=== PATIENT | male | born 1980 | race Caucasian/White ===

== ENCOUNTER 2016-07-20 21:10 | Emergency (ER) | payer MEDICAID ==
[~2016-07-20] VITALS: Ht 177.8 cm; Wt 90.7 kg
[~2016-07-20 21:10] MED LIST: FLOMAX0.4 MG ORAL; IBUPROFEN600 MG ORAL; NKM; NORCO 10-325 T1 EACH ORAL
[2016-07-20 21:40] VITALS: BP 117/85
[2016-07-20] MEDS ORDERED: Fluorescein Strips RIGHT EYE ONE (22:00)
[2016-07-20] MEDS ORDERED: Tetracaine 0.5% Opth Soln RIGHT EYE ONE (22:00)
[2016-07-20] MEDS ORDERED: VALACYCLOVIR1000 MG ORAL (22:15)
[2016-07-20] MEDS ORDERED: ACETAMINOPHEN-1 EAC1 ORAL (22:15)
[2016-07-20] MEDS ORDERED: IBUPROFEN800 MG ORAL (22:15)
--- NOTE | 2016-07-21 01:33 | Emergency Room Report ---
History of Present Illness General Chief Complaint: Neck Pain Source: Patient Present Illness HPI 35YOM with no known medical problems walk-in with burning pain, rash to right side of neck, ear, and eye "redness." for "a few days." Denies fever/chills, headache, nausea/vomiting, neck pain/stiffness. Denies eye blurry vision, decrease vision. States initially with severe pain to area, then rash breakout. Some of the rash had "bubbles" that he popped. Denies ear pain, rash on nose. Allergies: Coded Allergies: PENICILLINS (Verified Adverse Reaction, Intermediate, 11/16/15) Patient History Past Medical History: none Past Surgical History: none Pertinent Family History: none Social History: Denies: alcohol use, drug use, smoking Immunizations: UTD Reviewed Nursing Documentation: PMH: Agreed, PSxH: Agreed Nursing Documentation-PMH Past Medical History: No Stated History Review of Systems All Other Systems: negative except mentioned in HPI Physical Exam Vital Signs Date Time Temp Pulse Resp B/P Pulse Ox O2 Delivery O2 Flow Rate FiO2 07/20/16 21:37 97.9 81 20 117/85 97 Room Air Sp02 EP Interpretation: reviewed, normal General Appearance: normal inspection, well appearing, no apparent distress, alert, GCS 15, non-toxic Head: normocephalic, atraumatic Eyes: bilateral eye EOMI, bilateral eye PERRL, bilateral eye other - Right eye : no flour uptake or dendrites on blue lamp ENT: normal ENT inspection, hearing grossly normal, normal voice, other - No vesicles on TM; no vesicles on nose Neck: normal inspection, full range of motion, supple, no meningismus, no bony tend Respiratory: normal inspection, lungs clear, normal breath sounds, no respiratory distress, no retraction, no wheezing Cardiovascular #1: regular rate, rhythm, no edema Gastrointestinal: normal inspection, normal bowel sounds, non tender, soft, no guarding, no hernia Genitourinary: no CVA tenderness Musculoskeletal: normal inspection, back normal, normal range of motion, Lina' s Sign negative Neurologic: alert, oriented x3, responsive, director sterile processing III-XII nml as tested, motor strength/tone normal Psychiatric: normal inspection, judgement/insight normal, mood/affect normal Skin: normal color, other - Multiple areas of vesicles on erythematous base along dermatome of right side of neck, extending to include right ear. Medical Decision Making Diagnostic Impression: Primary Impression: Herpes zoster Qualified Codes: B02.9 - Zoster without complications ER Course Likely shingles given initial severe pain then rash, vesicles on erythematous base Does not appear to have opthalmicus however right eye has injected conjunctiva No judith celestin Rx Valtrex, Ibuprofen/T#3 Given Referral Optham for tomorrow to evaluate eye He understands importance of Optham followup Last Vital Signs Date Time Temp Pulse Resp B/P Pulse Ox O2 Delivery O2 Flow Rate FiO2 07/20/16 22:30 97.9 81 20 117/85 97 Room Air Status: improved Disposition: HOME, SELF-CARE Condition: Improved Scripts Acetaminophen With Codeine (T#3) (TYLENOL #3 TAB*) Y Tab 2 TAB ORAL Q6H Y for Severe pain for 7 Days, #30 TAB Prov: AMBAR MCDONNELL M.D. 07/20/16 Ibuprofen* (MOTRIN*) 800 Mg Tablet 800 MG ORAL THREE TIMES A DAY for For Pain, #30 TAB 0 Refills Prov: AMBAR MCDONNELL M.D. 07/20/16 Valacyclovir Hcl (VALACYCLOVIR) 1,000 Mg Tablet 1000 MG ORAL TID for 10 Days, #30 TAB Prov: AMBAR MCDONNELL M.D. 07/20/16 Referrals: [facility],REFERRING (PCP) Patient Instructions: Shingles, [id number] Additional Instructions: - Take all the Valacyclovir for 10 days until finished - Take ibuprofen every 8 hours for pain with food - For severe pain, take Tylenol with Codeine - Make appointment to see Opthamologist TOMORROW. - Farshad Mack, [place] - Tristen Koch, AMBAR MCDONNELL M.D. Jul 21, 2016 01:33
== END 2016-07-20 23:58 | disposition home or self-care (01) ==
LOC: EMR 22:27
DX: B02.9 Zoster without complications (principal)
CPT/HCPCS: 99284

== ENCOUNTER 2018-03-15 16:03 | Emergency (ER) | payer MEDICAID ==
[~2018-03-15] VITALS: Ht 177.8 cm; Wt 86.2 kg
[~2018-03-15 16:03] MED LIST changes: +ACETAMINOPHEN-1 EAC1 ORAL; +IBUPROFEN800 MG ORAL; +VALACYCLOVIR1000 MG ORAL
[2018-03-15 16:10] VITALS: BP 112/70
--- NOTE | 2018-03-15 16:39 | Emergency Room Report ---
History of Present Illness General Chief Complaint: Multiple Trauma/Fall Source: Patient Present Illness HPI 37-year-old male patient presents the ER complaining of pain status post slip and fall x1 day. States was walking last night and slipped on "wet" ground floor and fell to the ground. Reports that he slipped and landed on his low back, neck, right shoulder, head. Denies loss of consciousness. Denies vomiting or vision changes. Reports took ibuprofen last night and earlier today for pain symptoms. Reports pain on right side of his lower back is radiating up to his neck, states neck pain is radiating to his right shoulder and arm. Reports pain with movement. Denies fever, chest pain, shortness of breath, abdominal pain. Reports pain with ambulation, denies bowel or bladder incontinence. Denies pain rating down the legs. Allergies: Coded Allergies: PENICILLINS (Verified Adverse Reaction, Intermediate, 11/16/15) Patient History Past Medical History: see triage record Reviewed Nursing Documentation: PMH: Agreed; PSxH: Agreed Nursing Documentation-PMH Hx Cardiac Problems: No Hx Hypertension: No Hx Pacemaker: No Hx Asthma: No Hx COPD: No Hx Diabetes: No Hx Cancer: No Hx Gastrointestinal Problems: No - kidney stone, shingles Hx Dialysis: No History Of Psychiatric Problem: No Hx Neurological Problems: No Hx Cerebrovascular Accident: No Hx Seizures: No Review of Systems All Other Systems: negative except mentioned in HPI Physical Exam Vital Signs Date Time Temp Pulse Resp B/P (MAP) Pulse Ox O2 Delivery O2 Flow Rate FiO2 03/15/18 16:08 98.2 78 16 112/70 96 Room Air Sp02 EP Interpretation: reviewed, normal General Appearance: well appearing, no apparent distress, alert, GCS 15, non- toxic Head: normocephalic, atraumatic, other - negative Lira sign, negative Raccoon eyes, negative skull depression, negative heamtoma, no scalp laceration Eyes: bilateral eye normal inspection, bilateral eye PERRL, bilateral eye EOMI ENT: hearing grossly normal, normal pharynx, no angioedema, normal voice, TMs + canals normal, uvula midline, moist mucus membranes Neck: full range of motion, no bony tend Respiratory: lungs clear, normal breath sounds, no rhonchi, no respiratory distress, no accessory muscle use, no wheezing, speaking full sentences Cardiovascular #1: regular rate, rhythm, no edema Genitourinary: no CVA tenderness Musculoskeletal: back normal - no spinous processs tenderness or bony depression, digits/nails normal, gait/station normal, normal range of motion, other - NVI, cap refill <2seconds, AIN/PIN/radial nerve intact, no spinous process tenderness, no bony depression, negative sulus sign, negative raccoon eyes, , tender - right lumbosacral region, right lateral shoulder Neurologic: alert, oriented x3, responsive, range examiner III-XII nml as tested, motor strength/tone normal, SLR negative, sensory intact, cerebellar normal, normal gait, speech normal Psychiatric: mood/affect normal Skin: no rash Medical Decision Making PA Attestation Dr. Dawson is my supervising Physician whom patient management has been discussed with. Diagnostic Impression: Primary Impression: Fall from ground level Additional Impression: Head injury ER Course Pt. presents to the ED c/o neck, back, right shoulder, and head pain s/p slip and fall injury last night. Ddx considered but are not limited to fracture, sprain, strain, contusion, dislocation, cauda equina, ICH, skull fracture. No bowel or bladder incontinence, low suspicion for cauda equina. Cranial nerves intact as tested, no focal neuro deficits, negative lira sign, negative raccoon eyes, no loss of consciousness, no vomiting or vision changes, low suspicion for skull fracture or intracranial pathology, does not require CT head at this time per Bland CT head rule. Vital signs: are WNL, pt. is afebrile ER COURSE Provided with pain medication muscle relaxant and lidocaine patch., No spinous process tenderness or bony depression, negative straight leg raise, full range of motion of neck, pain with forward bend in low back. X-ray of the right shoulder shows no acute fracture per the preliminary reading. F/u with PCP for referral and to discuss need for MRI. Discuss results with the patient. Provided patient with copy of results. Instructed patient to followup with PCP and discuss results of report with patient, discuss need for further treatment and referral. x-ray of the cervical spine shows no acute fracture per the preliminary reading , loss of lordotic curve, likely due to muscle spasm causing straightening. Will provide patient with muscle relaxant. X-ray of the lumbar spine shows no acute fracture per the preliminary reading. Patient instructed on RICE method: rest, ice, compression, elevation. Patient instructed on rest, ice and heat. Patient instructed to be WBAT Contact information for orthopedic urgent care provided, follow-up with urgent care if unable to followup with primary care provider and get referral to administrative and program specialist. Followup with primary care provider. Discuss referral to ortho/pain management/ PT as needed. Discuss further imaging with MRI/CT as needed. Resting comfortably in bed, using right shoulder and arm to hold the phone to watch videos on phone. DISCHARGE At this time pt. is stable for d/c to home. Patient is resting comfortably, in no acute distress, nontoxic appearing, talking without difficulty. Will provide printed patient care instructions, and any necessary prescriptions. Patient instructed to follow with primary care provider in 3 - 5 days and to request further follow-up as needed. Care plan and follow up instructions have been discussed with the patient prior to discharge. Take medications as directed. Patient questions asked and answered. Patient reports understanding and agreement to treatment plan. ER precautions given, patient instructed to return to ER immediately for any new or worsening of symptoms. - Please note that this Emergency Department Report was dictated using [employer] helper technology software, occasionally this can lead to erroneous entry secondary to interpretation by the dictation equipment. Other X-Ray Diagnostic Results Other X-Ray Diagnostic Results #1: X-Ray ordered: Right shoulder # of Views/Limited Vs Complete: 3 View Indication: Pain EP Interpretation: Yes PA Xray: Interpretation reviewed, by supervising MD, and agrees with findings. Interpretation: no dislocation, no soft tissue swelling, no fractures Impression: No acute disease PA Scribe Text Zafar Richard PA-C Other X-Ray Diagnostic Results #2: X-Ray ordered: Cervical spine Indication: Pain EP Interpretation: Yes PA Xray: Interpretation reviewed, by supervising MD, and agrees with findings. Interpretation: no dislocation, no soft tissue swelling, no fractures Impression: No acute disease PA Scribe Text Zafar Richard PA-C Other X-Ray Diagnostic Results #3: X-Ray ordered: Lumbar spine # of Views/Limited Vs Complete: 3 View Indication: Pain EP Interpretation: Yes PA Xray: Interpretation reviewed, by supervising MD, and agrees with findings. Interpretation: no dislocation, no soft tissue swelling, no fractures Impression: No acute disease PA Scribe Text Zafar Richard PA-C Last Vital Signs Date Time Temp Pulse Resp B/P (MAP) Pulse Ox O2 Delivery O2 Flow Rate FiO2 03/15/18 16:08 98.2 78 16 112/70 96 Room Air Status: improved Disposition: HOME, SELF-CARE Condition: Stable Scripts Acetaminophen* (TYLENOL EXTRA STRENGTH*) 500 Mg Tablet 500 MG ORAL Q8H PRN for Prn Headache/Temp > 101, #30 TAB 0 Refills Prov: Eddie Richard 03/15/18 Methocarbamol* (ROBAXIN*) 500 Mg Tablet 500 MG PO TID, #21 TAB 0 Refills Prov: Eddie Richard 03/15/18 Lidocaine (Lidocaine) 1 Each Adh..patch 5 % TP DAILY for 7 Days, #7 PATCH Prov: Eddie Richard 03/15/18 Patient Instructions: Cervical Sprain, [id number], Head Injury, Adult, Easy- to-Read, Scapular Fracture Additional Instructions: Patient instructed to follow up with primary care provider 1-3 days and discuss further referral to ortho/physical therapy/pain management and need for further imaging at that time. Patient instructed on rest, ice and heat. Apply ice to scalp for swelling and pain symptoms. Do not take muscle relaxant prior to drinking, driving, or operating heavy machinery. Take medications as directed. Patient questions asked and answered. ER precautions given, patient instructed to return to ER immediately for any new or worsening of symptoms. [facility] [address] [facility] [address] [facility], [address] [email or web address] Follow up with primary care physician in 1 - 2 days. If you experience loss of consciousness, vision loss or intractable vomiting, return to ED immediately. Avoid screen time. Drink plenty of fluids. Avoid alcohol/drug use, rest. Eddie Richard Mar 15, 2018 16:39
--- NOTE | 2018-03-15 17:08 | Diagnostic Imaging Report ---
Indication: Pain, status post fall Technique: 3 views of the right shoulder Comparison: none Findings: No acute fractures. No dislocations. The joint spaces are preserved. Impression: Negative
[2018-03-15] MEDS ORDERED: ROBAXIN500 MG PO (17:29)
[2018-03-15] MEDS ORDERED: LIDOCAINE700 M1 TP (17:29)
[2018-03-15] MEDS ORDERED: TYLENOL EXTRA500 MG ORAL (17:29)
[2018-03-15 17:46] VITALS: BP 116/70
--- NOTE | 2018-03-16 08:43 | Diagnostic Imaging Report ---
Indication: Pain, status post fall Technique: 3 views of the cervical spine Comparison: none Findings: Bony alignment is normal. No prevertebral soft tissue swelling. No acute fractures. No dislocations. The cervicothoracic junction is well visualized. Impression: Negative
--- NOTE | 2018-03-16 08:44 | Diagnostic Imaging Report ---
Indication: Pain, status post fall Technique: 3 views of the lumbar spine Comparison: None Findings: Bony alignment is normal. Vertebral body heights are preserved. The disc spaces are preserved. The pedicles are intact Impression: Negative
== END 2018-03-15 17:46 | disposition home or self-care (01) ==
LOC: EMR 17:08
DX: S09.90XA Unspecified injury of head, initial encounter (principal); M54.2 Cervicalgia; M54.5 Low back pain; W19.XXXA Unspecified fall, initial encounter; Y92.009 Unspecified place in unspecified non-institutional (private) residence as the place of occurrence of the external cause; M25.511 Pain in right shoulder; Z88.0 Allergy status to penicillin
CPT/HCPCS: 72020; 72040; 99284